=== PATIENT | female | born 1970 | race Caucasian/White ===

== ENCOUNTER 2016-05-28 00:29 | Emergency (ER) | payer SELFPAY ==
[~2016-05-28] VITALS: Ht 154.9 cm; Wt 79.0 kg
[2016-05-28 00:49] VITALS: Ht 154.9 cm; Wt 79.0 kg
[2016-05-28] MEDS ORDERED: LORAZEPAM 1 MG TAB PO ONE (02:30)
--- NOTE | 2016-05-28 02:52 | ERD ---
ER Documentation Chief Complaint Date/Time DATE: 05/28/16 TIME: 02:49 Chief Complaint sp drug use- methamphetamine, anxiety HPI This is a 45-year-old female who presents to the emergency room for evaluation of anxiety. The patient does state that she has a history of anxiety and was taking Ativan. She states she has not been taking Ativan for the past 4 days because she ran out of her medications. She is also been using methamphetamines today. Denies any homicidal or suicidal ideation, chest pain ROS All systems reviewed and are negative except as per history of present illness. Allergies Allergies: Coded Allergies: No Known Allergy (Unverified , 05/28/16) PMhx/Soc Medical and Surgical Hx: pt denies Medical Hx, pt denies Surgical Hx Hx Alcohol Use: No Hx Substance Use: Yes (METH) Hx Tobacco Use: Yes Smoking Status: Current every day smoker Physical Exam Vitals Vital Signs Date Time Temp Pulse Resp B/P Pulse Ox O2 Delivery O2 Flow Rate FiO2 05/28/16 00:49 97.8 70 20 133/93 97 Physical Exam Const: No acute distress Head: Atraumatic Eyes: Normal Conjunctiva ENT: Dry mucous membranes, normal External Ears, Nose and Mouth. Neck: Full range of motion..~ No meningismus. Resp: Clear to auscultation bilaterally Cardio: Regular rate and rhythm, no murmurs Abd: Soft, non tender, non distended. Normal bowel sounds Skin: No petechiae or rashes Back: No midline or flank tenderness Ext: No cyanosis, or edema Neur: Awake and alert Psych: Normal Mood and Affect Results 24 hrs Current Medications Medications (Trade) Dose Ordered Sig/Christina Route PRN Reason Start Time Stop Time Status Last Admin Dose Admin Lorazepam (Ativan) 1 mg ONCE ONCE PO 05/28/16 02:30 05/28/16 02:31 DC 05/28/16 02:34 Procedures/MDM EKG: Rate/Rhythm: [Normal Sinus Rhythm with sinus arrhythmia] QRS, ST, T-waves: [No changes consistent w/ acute ischemia] Impression: [Normal sinus rhythm with sinus arrhythmia This 45-year-old female presents to the ER for evaluation of anxiety. The patient does have a history of anxiety and has been using amphetamines. The patient is also on Ativan however has not had her medications in over 4 days. The patient was given 1 mg of Ativan p.o. EKG shows normal sinus rhythm with sinus arrhythmia. She is not hypoxic, not tachycardic, no signs of benzodiazepine withdrawal at this time. She will be discharged with a prescription for Ativan for 2 days #6 tabs and instructions to follow-up with her primary care physician. Smoking Cessation Therapy: Pt. was lectured for greater than 3 minutes on the health risks of continued smoking and the benefits of cessation. Departure Diagnosis: Primary Impression: Anxiety Additional Impressions: Methamphetamine abuse Tobacco abuse Tobacco abuse counseling Condition: Stable DALTON MOSCOSO DO May 28, 2016 02:52
[2016-05-28] MEDS ORDERED: LORA1TAB PO (02:53)
== END 2016-05-28 02:58 | disposition home or self-care (01) ==
LOC: E/R 00:29
DX: F41.9 Anxiety disorder, unspecified (principal); F15.10 Other stimulant abuse, uncomplicated; F17.210 Nicotine dependence, cigarettes, uncomplicated; Z71.6 Tobacco abuse counseling
CPT/HCPCS: 93005

== ENCOUNTER 2016-05-28 19:44 | Emergency (ER) | payer SELFPAY ==
[~2016-05-28] VITALS: Ht 157.5 cm; Wt 79.0 kg
[~2016-05-28 19:44] MED LIST: LORA1TAB PO
[2016-05-28 20:29] VITALS: Ht 157.5 cm; Wt 79.0 kg
== END 2016-05-28 23:33 | disposition left against medical advice (07) ==
LOC: FTE 19:44
DX: Z53.21 Procedure and treatment not carried out due to patient leaving prior to being seen by health care provider (principal)

== ENCOUNTER 2016-05-29 00:29 | Emergency (ER) | payer SELFPAY ==
[~2016-05-29] VITALS: Ht 157.5 cm; Wt 72.0 kg
[2016-05-29 01:51] VITALS: Ht 157.5 cm; Wt 72.0 kg
== END 2016-05-29 02:19 | disposition left against medical advice (07) ==
LOC: E/R 00:29
DX: Z53.21 Procedure and treatment not carried out due to patient leaving prior to being seen by health care provider (principal)

== ENCOUNTER 2016-08-08 10:02 | Emergency (ER) | payer SELFPAY ==
[~2016-08-08] VITALS: Ht 157.5 cm; Wt 89.9 kg
[2016-08-08 10:08] VITALS: Ht 157.5 cm; Wt 89.9 kg
[2016-08-08] MEDS ORDERED: SOD CHLORIDE 0.9% 1,000 ML IV STA (10:41)
--- NOTE | 2016-08-08 10:41 | ERD ---
ER Documentation Chief Complaint Date/Time DATE: 08/08/16 TIME: 10:41 Chief Complaint BACK PAIN, LOUD CURSING STAFF HPI 45-year-old female with history of anxiety and methamphetamine abuse presents to the ED complaining of anxiety and requesting a refill of her Ativan prescription. She complains of generalized body aches but no focal pain. No headache or visual changes. Denies abdominal pain, nausea vomiting. No chest pain or palpitations. No dysuria or polyuria. No fevers or chills. In the waiting room she was abusive to the staff, laid on the floor and refused to cooperate but now cooperative and just wants a place to sleep for 2 hours. Denies hallucinations. No suicidal or homicidal ideations. ROS All systems reviewed and are negative except as per history of present illness. Medications Home Meds Active Scripts Lorazepam* (Lorazepam*) 1 Mg Tablet, 1 MG PO Q8 Y for ANXIETY, #4 TAB Prov:KVNG ORTEGA MD 08/08/16 Lorazepam* (Lorazepam*) 1 Mg Tablet, 1 MG PO Q8 Y for ANXIETY, #6 TAB Prov:DALTON MOSCOSO DO 05/28/16 Allergies Allergies: Coded Allergies: No Known Allergy (Unverified , 05/28/16) PMhx/Soc Reviewed in chart. As per HPI. Hx Respiratory Disorders: No Hx Cardiac Disorders: No Hx Psychiatric Problems: Yes (Anxiety) Hx Alcohol Use: No Hx Substance Use: Yes (METH) Hx Tobacco Use: Yes FmHx Not relevant to presenting complaint. Physical Exam Vitals Vital Signs Date Time Temp Pulse Resp B/P Pulse Ox O2 Delivery O2 Flow Rate FiO2 08/08/16 14:05 98.0 77 16 125/68 99 Room Air 08/08/16 11:15 88 16 128/65 99 Room Air 08/08/16 10:08 98.1 70 20 130/70 99 Physical Exam Const: Alert, NAD Head: Atraumatic Eyes: Normal Conjunctiva ENT: Normal External Ears, Nose and Mouth. Neck: Full range of motion. Nontender Resp: Clear to auscultation bilaterally Cardio: Regular rate and rhythm, no murmurs Abd: Soft, non tender, non distended. Normal bowel sounds Skin: No petechiae or rashes Back: No midline or flank tenderness Ext: No cyanosis, or edema Neur: Awake and alert Psych: Cooperative. Anxious. Denies depression. No delusions. No suicidal or homicidal ideations. Result Diagram: 08/08/16 1130 08/08/16 1130 Results 24 hrs Laboratory Tests Test 08/08/16 11:30 White Blood Count 8.010^3/ul Red Blood Count 4.6310^6/ul Hemoglobin 12.4g/dl Hematocrit 38.3% Mean Corpuscular Volume 82.7fl Mean Corpuscular Hemoglobin 26.8pg Mean Corpuscular Hemoglobin Concent 32.4g/dl Red Cell Distribution Width 14.7% Platelet Count 08194^3/UL Mean Platelet Volume 9.0fl Neutrophils % 70.8% Lymphocytes % 19.8% Monocytes % 6.6% Eosinophils % 2.0% Basophils % 0.3% Nucleated Red Blood Cells % 0.0/100WBC Neutrophils # 5.710^3/ul Lymphocytes # 1.610^3/ul Monocytes # 0.510^3/ul Eosinophils # 0.210^3/ul Basophils # 0.010^3/ul Nucleated Red Blood Cells # 0.010^3/ul Sodium Level 141mmol/L Potassium Level 3.9mmol/L Chloride Level 104mmol/L Carbon Dioxide Level 27mmol/L Anion Gap 14 Blood Urea Nitrogen 12mg/dl Creatinine 0.81mg/dl Glucose Level 82mg/dl Calcium Level 9.4mg/dl Total Bilirubin 0.5mg/dl Direct Bilirubin 0.00mg/dl Indirect Bilirubin 0.5mg/dl Aspartate Amino Transf (AST/SGOT) 22IU/L Alanine Aminotransferase (ALT/SGPT) 23IU/L Alkaline Phosphatase 84IU/L Total Protein 7.6g/dl Albumin 3.9g/dl Globulin 3.70g/dl Albumin/Globulin Ratio 1.05 Ethyl Alcohol Level < 10.0mg/dl Current Medications Medications (Trade) Dose Ordered Sig/Christina Route PRN Reason Start Time Stop Time Status Last Admin Dose Admin Sodium Chloride (NS) 1,000 ml @ 1,000 mls/hr Q1H STAT IV 08/08/16 10:41 08/08/16 11:40 DC Procedures/MDM DOCUMENTS REVIEWED: ED nurse, prior ED MEDICAL DECISION MAKIN-year-old female with history of anxiety and methamphetamine abuse presents to the ED complaining of anxiety and requesting a refill of her Ativan prescription. Patient initially refused to cooperate with diagnostic workup and subsequently allow blood draw but refused to give urinalysis. No depression, suicidality or homicidality. Likely ongoing polysubstance abuse. In triage complaint of back pain but denies this currently. Slept in the ED for over 3 hours. Asymptomatic upon awakeing. Stable for discharge precautionary instructions and outpatient follow-up as counseled. Counseled patient regarding diagnostic workup, diagnosis and need for followup. Understands to return to ED if symptoms recur, worsen or any other concerns. Departure Diagnosis: Primary Impression: Anxiety disorder Anxiety disorder type: unspecified anxiety disorder Qualified Code: F41.9 - Anxiety disorder, unspecified type Additional Impression: Polysubstance abuse Condition: Stable KVNG ORTEGA MD Aug 08, 2016 10:41
[2016-08-08 12:28] LABS: ADD SCAN DIFF NO
[2016-08-08 12:35] LABS: BASOPHILS % 0.3 % (0.0-2.0); EOSINOPHILS # 0.2 10^3/ul (0.0-0.5); HEMATOCRIT 38.3 % (37.0-47.0); HEMOGLOBIN 12.4 g/dl (12.0-16.0); LYMPHOCYTES # 1.6 10^3/ul (0.8-2.9); LYMPHOCYTES % 19.8 % (15.0-51.0); MEAN CORPUSCULAR HEMOGLOBIN 26.8 pg (29.0-33.0); MEAN CORPUSCULAR HGB CONC 32.4 g/dl (32.0-37.0); MEAN CORPUSCULAR VOLUME 82.7 fl (82.0-101.0); MONOCYTE # 0.5 10^3/ul (0.3-0.9); MONOCYTES % 6.6 % (0.0-11.0); NEUTROPHIL # 5.7 10^3/ul (1.6-7.5); NEUTROPHILS % 70.8 % (39.0-77.0); PLATELET COUNT 269 10^3/UL (140-415); RED BLOOD COUNT 4.63 10^6/ul (4.20-5.40); RED CELL DISTRIBUTION WIDTH 14.7 % (11.5-14.5)
[2016-08-08 12:38] LABS: ALBUMIN 3.9 g/dl (3.3-4.9); CHLORIDE 104 mmol/L (97-110); SODIUM 141 mmol/L (135-144)
[2016-08-08 12:39] LABS: POTASSIUM 3.9 mmol/L (3.5-5.1)
[2016-08-08 12:41] LABS: ALANINE AMINOTRANSFERASE 23 IU/L (13-69); ALBUMIN/GLOBULIN RATIO 1.05; ALKALINE PHOSPHATASE 84 IU/L (42-121); ANION GAP 14 (8-16); ASPARTATE AMINO TRANSFERASE 22 IU/L (15-46); BILIRUBIN,INDIRECT 0.5 mg/dl (0-1.1); BILIRUBIN,TOTAL 0.5 mg/dl (0.2-1.3); BLOOD UREA NITROGEN 12 mg/dl (7-20); CARBON DIOXIDE 27 mmol/L (21-31); CREATININE 0.81 mg/dl (0.44-1.00); GLUCOSE 82 mg/dl (70-220); TOTAL PROTEIN 7.6 g/dl (6.1-8.1)
[2016-08-08 12:42] LABS: CALCIUM 9.4 mg/dl (8.4-10.2)
[2016-08-08 12:48] LABS: ETHANOL < 10.0 mg/dl
[2016-08-08] MEDS ORDERED: LORA1TAB PO (13:59)
[2016-08-08 14:05] VITALS: BP 125/68; PULSE 77; RESP 16; TEMP 98
== END 2016-08-08 14:08 | disposition home or self-care (01) ==
LOC: E/R 10:02
DX: F41.9 Anxiety disorder, unspecified (principal); F15.10 Other stimulant abuse, uncomplicated; R40.2142 Coma scale, eyes open, spontaneous, at arrival to emergency department; R40.2252 Coma scale, best verbal response, oriented, at arrival to emergency department; R40.2362 Coma scale, best motor response, obeys commands, at arrival to emergency department
CPT/HCPCS: 80053; 80306; 85025; 99283; J7030

== ENCOUNTER 2016-08-08 14:52 | Emergency (ER) | payer SELFPAY ==
[~2016-08-08] VITALS: Ht 170.2 cm; Wt 70.0 kg
[2016-08-08 15:04] VITALS: Ht 170.2 cm; Wt 70.0 kg
--- NOTE | 2016-08-08 19:08 | EN ---
Date/Time of Note Date/Time of Note DATE: 08/08/16 TIME: 19:06 ER Progress Note HPI: 45-year-old woman brought in by EMS after she was found yelling and screaming while in a restaurant. Restaurant staff called 911 and she was transferred back here. She was seen and evaluated in this emergency department for many hours and after her symptoms improved she was discharged. She has no complaints of suicidal homicidal ideation. She denies fevers or chills, no chest pain or shortness of breath. She states she just wants a place to sleep. Past medical history: Bipolar disorder, schizophrenia, psychiatric illness Physical exam: GENERAL: Well-developed, agitated, unkempt HEENT: Moist mucous membranes, pink conjunctiva, no cervical spine tenderness or step-off deformities, no goiter, no jaundice or icterus, extraocular movements intact without pain. No submandibular induration, and no pharyngeal erythema NEURO: Alert and oriented 3, cranial nerves II through XII intact bilaterally, pupils equal round reactive to light, no focal deficits or facial asymmetry, sensation intact distally Strength 5/5 in upper and lower extremities bilaterally CARDIAC: Regular rate and rhythm, no murmurs rubs or gallops LUNGS: Clear bilaterally no wheezing crackles or stridor ABDOMEN: Soft nontender, no guarding, no rigidity, no rebound, no psoas sign no obturator sign. Normoactive bowel sounds SKIN: Warm and dry to touch, no abrasions, contusions, or hematomas, no lacerations, no ecchymosis, no target lesions, and without ulcers EXTREMITIES: No clubbing cyanosis or edema, calves are bilaterally symmetrical, no Homans sign, no popliteal cord sign. Distal pulses equal and bilateral PSYCH: Agitated Medical decision making: Reassurance was provided to the patient and she was given both verbal and written recommendations for outpatient management and given the address and phone #[phone] multiple nearby facilities. pressroom worker consultation was provided to the patient while here in the ED. Diagnostic impression: Acute anxiety reaction GWEN CALDERA MD Aug 08, 2016 19:08
== END 2016-08-08 16:59 | disposition home or self-care (01) ==
LOC: E/R 14:52
DX: F41.1 Generalized anxiety disorder (principal); R40.2252 Coma scale, best verbal response, oriented, at arrival to emergency department; R40.2142 Coma scale, eyes open, spontaneous, at arrival to emergency department; R40.2362 Coma scale, best motor response, obeys commands, at arrival to emergency department
CPT/HCPCS: 99283

== ENCOUNTER 2016-08-15 19:06 | Emergency (ER) | payer MEDICAID ==
[~2016-08-15] VITALS: Ht 160 cm; Wt 73.5 kg
[2016-08-15 19:10] VITALS: Ht 160 cm; Wt 73.5 kg
[2016-08-15] MEDS ORDERED: LORAZEPAM 1 MG TAB PO ONE (19:30)
--- NOTE | 2016-08-15 19:37 | ERD ---
ER Documentation Chief Complaint Date/Time DATE: 08/15/16 TIME: 19:34 Chief Complaint run out of ativan, left foot pain- no injury, diziness few hours ago HPI This is a 45-year-old female presents emergency room with anxiety attack. The patient is asking for refill of Ativan prescription. The patient states that she is feeling anxious. She states that she feels that she is being picked on at her sober living facility. She also notes chronic bilateral foot pain on the plantar surface that is worse with ambulation and improved with rest. She notes some dizziness. The patient states that she feels extremely anxious. She states that she may be withdrawing from methamphetamine but is unsure when the last time she used. She denies any suicidal thoughts. ROS All systems reviewed and are negative except as per history of present illness. Medications Home Meds Active Scripts Lorazepam* (Lorazepam*) 1 Mg Tablet, 1 MG PO Q8 Y for ANXIETY, #4 TAB Prov:KVNG ORTEGA MD 08/08/16 Lorazepam* (Lorazepam*) 1 Mg Tablet, 1 MG PO Q8 Y for ANXIETY, #6 TAB Prov:DALTON MOSCOSO DO 05/28/16 Allergies Allergies: Coded Allergies: No Known Allergy (Unverified , 05/28/16) PMhx/Soc Hx Respiratory Disorders: No Hx Cardiac Disorders: No Hx Psychiatric Problems: Yes (Anxiety) Hx Alcohol Use: No Hx Substance Use: Yes (METH) Hx Tobacco Use: Yes Physical Exam Vitals Vital Signs Date Time Temp Pulse Resp B/P Pulse Ox O2 Delivery O2 Flow Rate FiO2 08/15/16 19:10 98.0 117 20 148/90 100 Physical Exam General: Well developed, well nourished, no acute distress Head: Normocephalic, atraumatic. Eyes: Pupils equally reactive, EOM intact ENT: Moist mucous membranes Neck: Supple, no lymphadenopathy Respiratory: Lungs clear bilaterally, no distress Cardiovascular: RRR, no murmurs, rubs, or gallops Abdominal: Soft, non-tender, non-distended, no peritoneal signs : Deferred MSK: Bilateral feet with no erythema warmth or tenderness, slight breakdown to the plantar surface. 2+ dorsalis pedis and posterior tibial pulses bilaterally. Neurologic: Alert and oriented, moving all extremities, normal speech, no focal weakness, no cerebellar signs Skin: No rash Psych: Labile mood, no suicidal thoughts Results 24 hrs Current Medications Medications (Trade) Dose Ordered Sig/Christina Route PRN Reason Start Time Stop Time Status Last Admin Dose Admin Lorazepam (Ativan) 1 mg ONCE ONCE PO 08/15/16 19:30 08/15/16 19:31 DC Procedures/MDM The patient presents with signs and symptoms consistent with generalized anxiety disorder. The patient has multiple visits to the emergency room for similar related issues. Her foot pain appears to be chronic and nonspecific likely secondary to musculoskeletal, plantar fasciitis. No evidence of cellulitis or deep space infection no evidence of fracture. Given the patient's chronicity of visits to the emergency room for medication refills and anxiety issues I do not feel that a prescription for Ativan will benefit this patient. The patient was directed to a primary care physician and given resources to the [facility]. A single provider should prescribe this medication for the patient given it is a chronic medication. She states that she has a prescription for Ativan and her back. It is clearly apparent that the patient's visit today seems to be consistent with social issues. The patient is not suicidal. I believe she would benefit from social work consultation to assist her in finding a primary care physician , obtaining medications and consideration for an alternative placement. The patient does not have an acute medical condition. The patient will be discharged after social work evaluation. We discussed follow up with the patient's primary care doctor within 24 to 48 hours as needed. We also discussed return to the emergency room for worsening symptoms or worsening condition. Departure Diagnosis: Primary Impression: Anxiety attack Additional Impression: Encounter for medication refill Condition: Stable Patient Instructions: Anxiety Reaction Referrals: [facility] YOU HAVE RECEIVED A MEDICAL SCREENING EXAM AND THE RESULTS INDICATE THAT YOU DO NOT HAVE A CONDITION THAT REQUIRES URGENT TREATMENT IN THE EMERGENCY DEPARTMENT. FURTHER EVALUATION AND TREATMENT OF YOUR CONDITION CAN WAIT UNTIL YOU ARE SEEN IN YOUR DOCTORS OFFICE WITHIN THE NEXT 1-2 DAYS. IT IS YOUR RESPONSIBILITY TO MAKE AN APPOINTMENT FOR FOLOW-UP CARE. IF YOU HAVE A PRIMARY DOCTOR --you should call your primary doctor and schedule an appointment IF YOU DO NOT HAVE A PRIMARY DOCTOR YOU CAN CALL OUR PHYSICIAN REFERRAL HOTLINE AT IF YOU CAN NOT AFFORD TO SEE A PHYSICIAN YOU CAN CHOSE FROM THE FOLLOWING [facility] [address] [facility]. [facility] [address] [facility] [address] [facility] [address] [facility] [address] [facility]. [facility] [address] [facility]. [facility] YOU HAVE RECEIVED A MEDICAL SCREENING EXAM AND THE RESULTS INDICATE THAT YOU DO NOT HAVE A CONDITION THAT REQUIRES URGENT TREATMENT IN THE EMERGENCY DEPARTMENT. FURTHER EVALUATION AND TREATMENT OF YOUR CONDITION CAN WAIT UNTIL YOU ARE SEEN IN YOUR DOCTORS OFFICE WITHIN THE NEXT 1-2 DAYS. IT IS YOUR RESPONSIBILITY TO MAKE AN APPOINTMENT FOR FOLOW-UP CARE. IF YOU HAVE A PRIMARY DOCTOR --you should call your primary doctor and schedule and appointment IF YOU DO NOT HAVE A PRIMARY DOCTOR YOU CAN CALL OUR PHYSICIAN REFERRAL HOTLINE AT . IF YOU CAN NOT AFFORD TO SEE A PHYSICIAN YOU CAN CHOSE FROM THE FOLLOWING [facility] INSTITUTIONS: [facility] [address] [place] [address] [facility] [address] [place] [address] [facility] [address] [place] [address] Additional Instructions: Call your primary care doctor TOMORROW for an appointment during the next 1 WEEK.Tell the medical secretary that you were referred from this facility.See the doctor sooner or return here if your condition worsens before your appointment time. JESUS BOWEN MD Aug 15, 2016 19:37
== END 2016-08-15 21:59 | disposition home or self-care (01) ==
LOC: FTE 19:06
DX: F41.9 Anxiety disorder, unspecified (principal); Z87.891 Personal history of nicotine dependence
CPT/HCPCS: Z7502; Z7610; 99283